=== PATIENT | male | born 1990 | race Caucasian/White ===

== ENCOUNTER 2023-04-01 20:15 | Emergency (ER) | payer OTHER ==
[~2023-04-01] VITALS: Ht 182.9 cm; Wt 89.8 kg
== END 2023-04-01 23:35 | disposition home or self-care (01) ==
LOC: ER 20:16
DX: S09.8XXA Other specified injuries of head, initial encounter (principal); W19.XXXA Unspecified fall, initial encounter; Y93.I9 Activity, other involving external motion; Y92.89 Other specified places as the place of occurrence of the external cause; Y99.8 Other external cause status